=== PATIENT | female | born 1985 | race African-American/Black ===

== ENCOUNTER 2020-11-22 18:10 | Emergency (ER) | payer BC ==
[~2020-11-22] VITALS: Ht 175.3 cm; Wt 105.0 kg
[2020-11-22] MEDS ORDERED: METOCLOPRAMIDE HCL 5MG TABLET PO ONE (18:30)
[2020-11-22 19:19] LABS: BASOPHILS % 0.3 % (0.0-2.0); EOSINOPHILS % 1.7 % (0.0-5.0); HEMATOCRIT. 44.3 % (36.0-48.0); HEMOGLOBIN. 14.7 g/dL (12.0-16.0); MEAN CORPUSCULAR HEMOGLOBIN 26.4 pg (28.0-32.0); MEAN CORPUSCULAR VOLUME 79.6 fL (81.0-99.0); MEAN PLATELET VOLUME 8.7 fl (7.4-10.4); MONOCYTES % 6.4 % (2.0-8.0); NEUTROPHILS % 70.6 % (40.0-76.0); PLATELET 247 x1000/uL (130-400); RED BLOOD CELL COUNT 5.56 mill/uL (4.2-5.4); RED CELL DISTRIBUTION WIDTH 14.7 % (11.6-14.6)
[2020-11-22 19:24] LABS: CHLORIDE 108 mEq/L (98-107)
[2020-11-22 19:25] LABS: PROTHROMBIN TIME 10.6 sec (9.6-11.0)
[2020-11-22 19:27] LABS: HCG SCREEN NEGATIVE
[2020-11-22 19:29] LABS: ETHANOL BLOOD < 10 mg/dL
[2020-11-22 20:09] LABS: CLARITY URINE CLEAR (CLEAR); COLOR URINE YELLOW (YELLOW); KETONES URINE 2+ (NEGATIVE); LEUKOCYTE ESTERASE URINE NEGATIVE (NEGATIVE); NITRITE URINE NEGATIVE (NEGATIVE); OCCULT BLOOD URINE NEGATIVE (NEGATIVE); PH URINE 8.5 (4.5-8.0); PROTEIN URINE NEGATIVE (NEGATIVE); SPECIFIC GRAVITY URINE 1.021 (1.005-1.030); UROBILINOGEN URINE 0.2 E.U./dL (0.2-1.0)
[2020-11-22 20:18] LABS: *BENZODIAZEPINES SCREEN URINE NEGATIVE (NEGATIVE); *COCAINE SCREEN URINE NEGATIVE (NEGATIVE); METHADONE URINE SCREEN NEGATIVE (NEGATIVE); OPIATES URINE SCREEN NEGATIVE (NEGATIVE)
[2020-11-22 20:19] LABS: *AMPHETAMINES SCREEN URINE NEGATIVE (NEGATIVE); *BARBITURATES SCREEN URINE NEGATIVE (NEGATIVE); PHENCYCLIDINE URINE SCREEN NEGATIVE (NEGATIVE)
[2020-11-22 20:20] LABS: CANNABINOID URINE SCREEN PRESUMTIVE POSITIVE (NEGATIVE)
[2020-11-22] MEDS ORDERED: ONDA4TAB5 MT (20:26)
[2020-11-22] MEDS ORDERED: NITA500T2 MT (20:26)
[2020-11-22 20:35] VITALS: BP 131/76
== END 2020-11-22 20:37 | disposition home or self-care (01) ==
LOC: ER 18:10 → EDBD 18:10 → ER 20:37
DX: R11.2 Nausea with vomiting, unspecified (principal); R10.13 Epigastric pain; R03.0 Elevated blood-pressure reading, without diagnosis of hypertension
CPT/HCPCS: 36415; 80053; 80305; 80320; 81003; 81025; 83690; 84703; 85025; 85610; 99283; J8597; G0480